=== PATIENT | female | born 1975 | race Caucasian/White ===

== ENCOUNTER 2022-11-26 14:31 | Emergency (ER) | payer BC, SELFPAY ==
[2022-11-26 14:52] VITALS: BP 89/59; PULSE 65; RESP 18; TEMP 36; O2SAT 94; BMI 34.7
--- NOTE | 2022-11-26 15:24 | ED.WOUNDLAC ---
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 She was placing it up on a shelf in it fell and cut into her right wrist. She has a 6 cm linear laceration over the volar aspect of her wrist. She has full function of her tendons and nerves. Her tetanus status is up-to-date. Related Data Home Medications Medication Instructions Recorded Confirmed adalimumab 40 mg/0.4 mL 40 mg subcut Q2W 11/26/22 11/26/22 subcutaneous pen kit (Humira(CF) Pen) bupropion HCl 150 mg 24 hr tablet, 150 mg PO DAILY 11/26/22 11/26/22 extended release cholecalciferol (vitamin D3) 125 125 mcg PO DAILY 11/26/22 11/26/22 mcg (5,000 unit) tablet (Vitamin D3) Allergies Allergy/AdvReac Type Severity Reaction Status Date / Time No Known Drug Allergies Allergy Verified 11/26/22 14:51 Review of Systems Status of ROS: Reports: 10 or more systems reviewed and unremarkable except as noted in History and below Narrative: Constitutional: No fevers, no weight gain or loss. Eyes: No discharge. No vision changes. HENT: No congestion, no sore throat, no ear pain. Cardiovascular: No chest pain, no palpitations. Respiratory: No shortness of breath, no wheezes, no cough. Gastrointestinal: No abdominal pain, no vomiting, no diarrhea. Genitourinary: No dysuria, no hematuria. Musculoskeletal: Normal range of motion. Skin: No rashes, no pruritis. Neurological: No dizziness, weakness, sensory change, speech change. Endo/Heme/Allergies: No bruising or bleeding. No polydipsia. Pysch: no suicidality, no anxiety, no insomnia. All other systems reviewed and are negative. Exam Narrative: Exam Narrative: Constitutional: Well-developed, well-nourished, no acute distress. HEENT: Normocephalic, atraumatic. Neck: Normal range of motion. Nontender. Supple. Heart: Regular. No murmurs. Normal rate. Intact distal pulses. Lungs: Clear to auscultation. No chest discomfort. No wheezes, rhonchi, or rales. Abdomen: Normal bowel sounds. Nontender. No rebound tenderness. Genitalia: Deferred. Back: No midline tenderness. Normal range of motion. Extremities: Normal range of motion. 6 cm linear laceration across the volar aspect of the right wrist. Skin: Intact. No rash. Warm. No erythema or pallor. Neurologic: No altered sensation. No weakness. Alert and oriented. Psychiatric: No suicidality. No anxiety or depression. No insomnia. Nursing notes and vitals signs are reviewed. Const: Vital Signs, click to edit/add: Vital Signs - 24 hr 11/26/22 14:52 Temperature 96.8 F L Pulse Rate [Pulse Oximeter] 65 Respiratory Rate 18 Blood Pressure [Le ft Upper Arm] 89/59 L Pulse Oximetry 94 Oxygen Delivery Me thod Room Air Course Vital Signs Vital signs: Initial Vital Signs Temperature 96.8 F L 11/26/22 14:52 Temperature Source Temporal Artery Scan 11/26/22 14:52 Pulse Rate 65 11/26/22 14:52 Respiratory Rate 18 11/26/22 14:52 Blood Pressure 89/59 L 11/26/22 14:52 Blood Pressure Mean 69 L 11/26/22 14:52 Pulse Oximetry 94 11/26/22 14:52 Oxygen Delivery Method Room Air 11/26/22 14:52 Vital Signs Temperature 96.8 F L 11/26/22 14:52 Pulse Rate 65 11/26/22 14:52 Respiratory Rate 18 11/26/22 14:52 Blood Pressure 89/59 L 11/26/22 14:52 Pulse Oximetry 94 11/26/22 14:52 Oxygen Delivery Method Room Air 11/26/22 14:52 Temperature 96.8 F L 11/26/22 14:52 Pulse Rate 65 11/26/22 14:52 Respiratory Rate 18 11/26/22 14:52 Blood Pressure 89/59 L 11/26/22 14:52 Pulse Oximetry 94 11/26/22 14:52 Oxygen Delivery Method Room Air 11/26/22 14:52 MDM - Wound/Laceration MDM Narrative Medical decision making narrative: This patient has a wrist laceration that would benefit from suture repair. After anesthesia with 1% lidocaine with epinephrine the wound was cleansed and explored to its base. 8 sutures were placed in interrupted fashion using 4.0 Ethilon suture. The wound was bandaged and instructions were given regarding wound care and the need to return in 7-10 days for suture removal. Discharge Plan Discharge Clinical Impression: Laceration Patient Disposition: Home, Self-Care Condition: Improved Additional Instructions: Keep wound clean and dry. Return to clinic or urgent care in 7-10 days for suture removal. Follow up with MD otherwise as needed. Prescriptions: No Action bupropion HCl 150 mg tablet extended release 24 hr 150 mg PO DAILY cholecalciferol (vitamin D3) [Vitamin D3] 125 mcg (5,000 unit) tablet 125 mcg PO DAILY Humira(CF) Pen 40 mg/0.4 mL pen injector kit 40 mg subcut Q2W Stand Alone Forms: [facility] Info Instructions
== END 2022-11-26 15:36 | disposition home or self-care (01) ==
LOC: ED 15:33
PROVIDERS: Emergency Provider Emergency Medicine Emergency Medical Services; PCP Physician Assistant Medical
DX: S61.511A Laceration without foreign body of right wrist, initial encounter (principal); W26.8XXA Contact with other sharp object(s), not elsewhere classified, initial encounter
CPT/HCPCS: 12002; 99283; 99284

== ENCOUNTER 2023-12-01 11:14 | Emergency (ER) | payer BC, SELFPAY ==
[2023-12-01 11:18] VITALS: BP 137/84; PULSE 75; RESP 18; TEMP 36.9; O2SAT 98; BMI 32.8
--- NOTE | 2023-12-01 11:48 | CRLHL7_ITS ---
For Patients: As a result of the Cures Act, medical imaging exams and procedure reports are released immediately into your electronic medical record. You may view this report before your referring provider. If you have questions, please contact your health care provider. INDICATION: Lower abdominal pain. Cramping. Prior tubal ligation and cholecystectomy. TECHNIQUE: CT abdomen and pelvis acquired with 78 cc of Isovue 370 IV contrast. COMPARISON: None. FINDINGS: Lower chest: Unremarkable. Liver: Unremarkable. Spleen: Unremarkable. Pancreas: Unremarkable. Gallbladder and bile ducts: Cholecystectomy. No biliary ductal dilatation. Kidneys: Unremarkable. Adrenal glands: Unremarkable. GI tract: Distal colonic diverticulosis without evidence of acute diverticulitis. No evidence of obstruction or appendicitis. No free intraperitoneal gas. Trace pelvic free fluid. Lymph nodes: No pathologic lymphadenopathy. Vascular structures: Unremarkable. Pelvic Organs: Small low densities in the bilateral adnexal regions likely represent dominant follicles or small cysts. Uterus and bladder as imaged are unremarkable. Bones: No acute or suspicious osseous abnormality. IMPRESSION: 1. No acute intra-abdominal or pelvic abnormality. 2. Mild sigmoid diverticulosis without evidence of acute diverticulitis. 3. Trace pelvic free fluid is likely physiologic. Low densities in the adnexal regions likely represent small cysts or dominant follicles. Dictated by Amari Beltrán MD @ 12/01/2023 1:23:01 PM Please note that all CT scans at this facility use dose modulation, iterative reconstruction, and/or weight-based dosing when appropriate to reduce radiation dose to as low as reasonably achievable. Dictated by: Amari Beltrán MD @ 12/01/2023 13:23:18 (Electronically Signed)
[2023-12-01 11:58] LABS: Appearance Urine Cloudy (Clear); Bilirubin Urine Negative (Negative); Blood Urine Trace-intact (Negative); Color Urine Yellow (Yellow); Glucose Urine Negative (Negative); Ketones Urine Negative (Negative); Leukocyte Esterase Urine Negative (Negative); Nitrite Urine Negative (Negative); Protein Urine Negative (Negative); Specific Gravity Urine >= 1.030 (1.000-1.030); Ur HCG Qualitative* Negative (Negative); Urobilinogen Urine 0.2 (0.2-1.0); pH Urine 5.5 (5.0-8.5)
[2023-12-01 12:06] LABS: Amorphous Sediment Urine Many; RBC Urine 0-2 (0-2); Squamous Epithelial Cell Urine Moderate (None-Few); WBC Urine 0-2 (0-5)
--- NOTE | 2023-12-01 12:09 | ED_ITS ---
HPI - General Adult General Date Seen: 12/01/23 Chief complaint: Abdominal Pain Stated complaint: Lower abdominal pain Time Seen by Provider: 12/01/23 11:41 Source: patient, RN notes reviewed and old records reviewed Mode of arrival: ambulatory Limitations: no limitations History of Present Illness HPI narrative: Patient is a 48-year-old woman who presents for evaluation of some lower abdo durga pain which she has been having periodically it sounds like for a few months although it has been worse this week. She notes she had a bad episode of lower abdominal cramping with referral to the labia and buttocks on Tuesday which lasted several hours. It resolved with ibuprofen and heating pad. She had recurrence of symptoms although less severe today while out for a walk. She has not taken any medications today, pain is improved at this time. She does have a prior history of uterine fibroids, she has an appointment on the of this month to discuss hysterectomy. She showed me her calender in her phone where she jaw at sound when she has symptoms she has scattered episodes of this lower abdominal cramping but says it was worse on Tuesday than it has ever been. She does have episodic bleeding but denies any today. She has not had urinary symptoms, nausea, vomiting, diarrhea, constipation, hematuria or other complaints. She was worried today that it might be something different like appendicitis. She has had a tubal ligation, denies other abdominal surgeries. She has a possible diagnosis of ankylosing spondylosis, for which she is on Humira. 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 Related Data Home Medications ?Medication ?Instructions ?Recorded ?Confirmed adalimumab 40 mg/0.4 mL 40 mg subcut Q2W 11/26/22 12/01/23 subcutaneous pen kit (Humira(CF) Pen) cholecalciferol (vitamin D3) 125 125 mcg PO DAILY 11/26/22 12/01/23 mcg (5,000 unit) tablet (Vitamin D3) albuterol sulfate 90 mcg/actuation 1 - 2 puff inhalation Q6H PRN 12/01/23 12/01/23 aerosol inhaler dyspnea Allergies Allergy/AdvReac Type Severity Reaction Status Date / Time No Known Drug Allergies Allergy Verified 12/01/23 11:27 Review of Systems Status of ROS: Reports: 10 or more systems reviewed and unremarkable except as noted in History and below PFSH PFS Social History Smoking Status: Unknown if ever smoked Exam Narrative: Exam Narrative: Vital signs as noted above. In general, an alert, well-appearing patient. Head: Normocephalic, atraumatic. Eyes: Pupils are equal reactive. Extraocular movements are full. Conjunctivae are normal. ENT: Mucous membranes are moist. Throat is normal. Neck: Supple without lymphadenopathy. Heart: Regular rate and rhythm. No murmur or rub. Lungs: Clear bilaterally. No increased work of breathing, crackles or wheezes. Abdomen: Soft and nondistended. She has some mild suprapubic tenderness without rebound guarding or rigidity. Extremities: Well perfused. No edema. No calf tenderness. Pulses intact. Neurologic: Patient is alert and oriented to person and place. Speech is fluent. Face is symmetric. Moves all extremities equally. Affect: Normal. Skin: Warm and dry. Well perfused. Const: Vital Signs, click to edit/add: Vital Signs - 24 hr 12/01/23 11:18 12/01/23 13:18 Temperature 98.4 F Pulse Rate [Pulse Oximeter] 75 70 Respiratory Rate 18 18 Blood Pressure [Ri ght Upper Arm] 137/84 139/75 Pulse Oximetry 98 96 Oxygen Delivery Me thod Room Air Room Air Documenting provider has reviewed patient's vital signs: yes Course Course ED Course: Patient presents with episodic lower abdominal cramping. Overall my suspicion is high is that this is related to uterine cramping, but will evaluate for possible other etiologies such as appendicitis, diverticulitis, ovarian pathology, UTI, kidney stone. At this time, she is feeling relatively comfortable, abdominal exam is benign. Patient had some fluids and Toradol, is feeling improved. Evaluation is unremarkable, labs including CBC, metabolic panel, UA and UPT are unremarkable. CRP is minimally elevated at 1.4. Abdominal exam remains benign and CT scan of the abdomen by my review did not show any evidence of appendicitis, diverticulitis or obstruction. Final radiology read as follows:FINDINGS: Lower chest: Unremarkable. Liver: Unremarkable. Spleen: Unremarkable. Pancreas: Unremarkable. Gallbladder and bile ducts: Cholecystectomy. No biliary ductal dilatation. Kidneys: Unremarkable. Adrenal glands: Unremarkable. GI tract: Distal colonic diverticulosis without evidence of acute diverticulitis. No evidence of obstruction or appendicitis. No free intraperitoneal gas. Trace pelvic free fluid. Lymph nodes: No pathologic lymphadenopathy. Vascular structures: Unremarkable. Pelvic Organs: Small low densities in the bilateral adnexal regions likely represent dominant follicles or small cysts. Uterus and bladder as imaged are unremarkable. Bones: No acute or suspicious osseous abnormality. IMPRESSION: 1. No acute intra-abdominal or pelvic abnormality. 2. Mild sigmoid diverticulosis without evidence of acute diverticulitis. 3. Trace pelvic free fluid is likely physiologic. Low densities in the adnexal regions likely represent small cysts or dominant follicles. Reviewed all this with her. She does have that appointment scheduled on the and I would encourage that follow-up. Return at any time for acute worsening, new symptoms such as fever, vomiting, bloody stools etcetera. Continue with ibuprofen as needed. Vital Signs Vital signs: Initial Vital Signs Temperature 98.4 F 12/01/23 11:18 Temperature Source Temporal Artery Scan 12/01/23 11:18 Pulse Rate 75 12/01/23 11:18 Respiratory Rate 18 12/01/23 11:18 Blood Pressure 137/84 12/01/23 11:18 Blood Pressure Mean 101 12/01/23 11:18 Blood Pressure Position Sitting 12/01/23 11:18 Pulse Oximetry 98 12/01/23 11:18 Oxygen Delivery Method Room Air 12/01/23 11:18 Vital Signs Temperature 98.4 F 12/01/23 11:18 Pulse Rate 75 12/01/23 11:18 Respiratory Rate 18 12/01/23 11:18 Blood Pressure 137/84 12/01/23 11:18 Pulse Oximetry 98 12/01/23 11:18 Oxygen Delivery Method Room Air 12/01/23 11:18 Temperature 98.4 F 12/01/23 11:18 Pulse Rate 70 12/01/23 13:18 Respiratory Rate 18 12/01/23 13:18 Blood Pressure 139/75 12/01/23 13:18 Pulse Oximetry 96 12/01/23 13:18 Oxygen Delivery Method Room Air 12/01/23 13:18 Medications Administered Medications: Discontinued Medications Generic Name Dose Route Start Last Admin Trade Name Freq PRN Reason Stop Dose Admin Sodium Chloride 500 mls @ 500 mls/hr 12/01/23 11:48 12/01/23 13:09 0.9 % Sodium Chloride 500 Ml IV 12/01/23 12:47 500 mls/hr .Q1H ONE Administration Ketorolac Tromethamine 15 mg 12/01/23 11:48 12/01/23 13:10 Ketorolac 15 Mg/Ml Inj IVP 12/01/23 11:49 15 mg ONCE ONE Administration Medical Decision Making Lab Data Labs: Lab Results 12/01/23 12/01/23 Range/Units 11:50 12:27 WBC 10.73 (4.50-11.00) K/uL RBC 4.75 (4.00-5.20) m/uL Hgb 14.2 (12.0-16.0) gm/dL Hct 41.9 (33.0-51.0) % MCV 88 (80-100) fL MCH 30 (26-34) pg MCHC 34 (32-36) gm/dL RDW Coeff of Juanjose 12.9 (11.5-15.5) % Plt Count 277 (140-440) K/uL Neut % (Auto) 76.6 H (42.0-72.0) % Lymph % (Auto) 16.3 L (20-44) % Citrus % (Auto) 4.8 (0.0-11.0) % Eos % (Auto) 1.6 (0.0-7.0) % Baso % (Auto) 0.4 (0.0-3.0) % Neut # (Auto) 8.20 H (1.7-7.0) K/uL Lymph # (Auto) 1.70 (0.90-2.90) K/uL Citrus # (Auto) 0.50 (0.00-0.90) K/UL Eos # (Auto) 0.17 (0.00-0.50) K/uL Baso # (Auto) 0.04 (0.00-0.30) K/uL Abs Immat Gran (auto) 0.03 (0.00-0.30) K/uL Imm/Tot Granulo (auto) 0.3 % Sodium 137 (135-149) mmol/L Potassium 3.9 (3.6-5.1) mmol/L Chloride 105 (96-114) mmol/L Carbon Dioxide 27 (20-32) mmol/L Anion Gap 5 L (7-15) mEq/L BUN 15 (5-24) mg/dL Creatinine 0.7 (0.5-1.5) mg/dL Estimated Creat Clear 91.01 Estimated GFR 106 ml/min Glucose 95 (60-115) mg/dL Calcium 9.4 (8.4-10.6) mg/dL C-Reactive Protein 1.4 H (0.5-1.0) mg/dL Urine Color Yellow (Yellow) Urine Appearance Cloudy A (Clear) Urine pH 5.5 (5.0-8.5) Ur Specific [place] >= 1.030 (1.000-1.030) Urine Protein Negative (Negative) Urine Glucose (UA) Negative (Negative) Urine Ketones Negative (Negative) Urine Blood Trace-intact A (Negative) Urine Nitrite Negative (Negative) Urine Bilirubin Negative (Negative) Urine Urobilinogen 0.2 (0.2-1.0) Ur Leukocyte Esterase Negative (Negative) Urine RBC 0-2 (0-2) Urine WBC 0-2 (0-5) Ur Squamous Epith Cells Moderate A (None-Few) Amorphous Sediment Many A (None) Urine Bacteria None (None) Urine HCG, Qual Negative (Negative) Discharge Plan Discharge Clinical Impression: Abdominal pain Patient Disposition: Home, Self-Care Condition: Improved Instructions: Abdominal Pain (ED) Additional Instructions: Your evaluation today is reassuring, your CT scan shows diverticulosis but no evidence of inflammation/diverticulitis, and there is no evidence of appendicitis. Your labs are normal as well. I do think follow-up with your primary doctor and subsequently with gynecology would be reasonable. You can continue to use ibuprofen as needed. If you have severe uncontrolled pain that does not resolve with your usual measures, develop new symptoms such as fevers, vomiting, bloody stools etcetera, return at any time to the emergency department. Prescriptions: No Action cholecalciferol (vitamin D3) [Vitamin D3] 125 mcg (5,000 unit) tablet 125 mcg PO DAILY Humira(CF) Pen 40 mg/0.4 mL pen injector kit 40 mg subcut Q2W albuterol sulfate 90 mcg/actuation HFA aerosol inhaler 1 - 2 puff INHALATION Q6H PRN (Reason: dyspnea) Follow Up/Referrals: Elma Delong PA-C [Primary Care Provider] - Stand Alone Forms: [employer] Info Instructions
[2023-12-01 12:37] LABS: Basophils Absolute Auto 0.04 K/uL (0.00-0.30); Basophils Percent Auto 0.4 % (0.0-3.0); Eosinophils Absolute Auto 0.17 K/uL (0.00-0.50); Eosinophils Percent Auto 1.6 % (0.0-7.0); Hematocrit 41.9 % (33.0-51.0); Hemoglobin* 14.2 gm/dL (12.0-16.0); Immature Granulocytes Abs Auto 0.03 K/uL (0.00-0.30); Immature Granulocytes Pct Auto 0.3 %; Lymphocytes Percent Auto 16.3 % (20-44); Mean Corpuscular HGB Conc 34 gm/dL (32-36); Mean Corpuscular Hemoglobin 30 pg (26-34); Mean Corpuscular Volume 88 fL (80-100); Monocytes Percent Auto 4.8 % (0.0-11.0); Neutrophils Percent Auto 76.6 % (42.0-72.0); Platelet Count* 277 K/uL (140-440); RDW Coefficient of Variation % 12.9 % (11.5-15.5); Red Blood Count 4.75 m/uL (4.00-5.20); White Blood Count* 10.73 K/uL (4.50-11.00)
[2023-12-01 12:50] LABS: Slide Review Reflex No
[2023-12-01 12:52] LABS: Chloride* 105 mmol/L (96-114); Sodium* 137 mmol/L (135-149)
[2023-12-01 12:53] LABS: Potassium* 3.9 mmol/L (3.6-5.1)
[2023-12-01 12:55] LABS: Creatinine* 0.7 mg/dL (0.5-1.5); Est. Creatinine Clearance* 91.01; Estimated Glomerular Filt Rate 106 ml/min
[2023-12-01 12:56] LABS: Anion Gap 5 mEq/L (7-15); Blood Urea Nitrogen* 15 mg/dL (5-24); Calcium* 9.4 mg/dL (8.4-10.6); Carbon Dioxide* 27 mmol/L (20-32); Glucose* 95 mg/dL (60-115)
[2023-12-01 12:59] LABS: C Reactive Protein* 1.4 mg/dL (0.5-1.0)
[2023-12-01] MEDS: 0.9 % SODIUM CHLORIDE 500 ML 500 ML IV (13:09)
[2023-12-01] MEDS: KETOROLAC 15 MG/ML inj IVP (13:10)
[2023-12-01 13:18] VITALS: BP 139/75; PULSE 70; RESP 18; O2SAT 96
== END 2023-12-01 13:56 | disposition home or self-care (01) ==
PROVIDERS: Emergency Provider Emergency Medicine; PCP Physician Assistant Medical
DX: R10.9 Unspecified abdominal pain (principal)
CPT/HCPCS: 36415; 74177; 80048; 81001; 81025; 85025; 86140; 96374; 99284; 99285; J1885; J7030; Q9967

== ENCOUNTER 2024-02-02 10:16 | Outpatient (CLI) | payer BC, SELFPAY ==
[2024-02-04 05:39] LABS: HPV Source Cervical; HPV, High Risk by TMA Not Detected
[2024-02-14 14:02] LABS: Pap Test Reviewed by Path Done
== END 2024-02-02 10:17 | disposition home or self-care (01) ==
PROVIDERS: PCP Physician Assistant Medical; Visit Provider Obstetrics & Gynecology
DX: N92.1 Excessive and frequent menstruation with irregular cycle (principal); N94.6 Dysmenorrhea, unspecified; Z12.4 Encounter for screening for malignant neoplasm of cervix
CPT/HCPCS: 87624; 87625; 88141; 88142

== ENCOUNTER 2024-03-29 09:14 | Day surgery (SDC) | payer BC, SELFPAY ==
[2024-03-29] VITALS (20 sets, daily range): BP systolic 116–148; BP diastolic 59–85; PULSE 55–90; RESP 16–20; TEMP 36.3–37.2; O2SAT 91–98; BMI 34.0
[2024-03-29] MEDS: 0.9 % SODIUM CHLORIDE 500 ML 500 ML 100 ML IV ×2 (10:00→14:26)
[2024-03-29] MEDS: SODIUM CHLORIDE 0.9 % (FLUSH) 10 ML SYRINGE IVF (10:00)
[2024-03-29 10:14] LABS: Ur HCG Qualitative* Negative (Negative)
[2024-03-29 10:25] LABS: Basophils Absolute Auto 0.02 K/uL (0.00-0.30); Basophils Percent Auto 0.2 % (0.0-3.0); Eosinophils Absolute Auto 0.18 K/uL (0.00-0.50); Eosinophils Percent Auto 2.2 % (0.0-7.0); Hematocrit 41.2 % (33.0-51.0); Immature Granulocytes Abs Auto 0.04 K/uL (0.00-0.30); Immature Granulocytes Pct Auto 0.5 %; Lymphocytes Absolute Auto 1.84 K/uL (0.90-2.90); Lymphocytes Percent Auto 22.2 % (20-44); Mean Corpuscular HGB Conc 34 gm/dL (32-36); Mean Corpuscular Hemoglobin 30 pg (26-34); Mean Corpuscular Volume 88 fL (80-100); Monocytes Percent Auto 4.9 % (0.0-11.0); Platelet Count* 256 K/uL (140-440); RDW Coefficient of Variation % 12.7 % (11.5-15.5); Red Blood Count 4.69 m/uL (4.00-5.20); White Blood Count* 8.29 K/uL (4.50-11.00)
[2024-03-29 10:34] LABS: Slide Review Reflex No
[2024-03-29 10:35] LABS: Creatinine* 0.6 mg/dL (0.5-1.5); Est. Creatinine Clearance* 105.01; Estimated Glomerular Filt Rate 109 ml/min
--- NOTE | 2024-03-29 10:39 | W.ANESCHARGE ---
Anesthesia Charges Start Date/Time Anesthesia Start Date: 03/29/24 Anesthesia Start Time: 11:18 Stop Date/Time Anesthesia Stop Date: 03/29/24 Anesthesia Stop Time: 14:15
--- NOTE | 2024-03-29 10:40 | P.NB_ITS ---
Nerve Block Nerve Block Time Seen by Provider: 11:20 Date Seen: 03/29/24 Type of block requested by surgeon for post-operative analgesia: TAP Side: bilateral Time out performed: Yes Verification of patient name: Yes Verification of date of : Yes Site marking: site marked Name of person performing procedure: Brodie Continuous monitoring Was continuous monitoring of O2 sat, B/P, telemetry monitor, recorded every 15 minutes?: Yes Procedure Checklist: sterile prep, needles and gloves Ultrasound guided. Images saved: Yes Medications given in 5ml increments after negative aspiration: Marcaine %: 0.25 mL: 30 Needle gauge: 20 and Exparel mL: 10 Patient tolerated procedure well: Yes Additional comments: Needle noted between internal oblique and transversus abdominus. Local spread visualized Block Charges Block Charge (with Pro Fee): TAP Bilateral Use of Ultrasound Machine for Block: Yes- US Guidance/pain block
[2024-03-29] MEDS: CEFAZOLIN 2 GM INJ IVP (11:30)
[2024-03-29] MEDS: LIDOCAINE 1%-EPI 1:100,000 20 ML INFILTRATI (13:40)
--- NOTE | 2024-03-29 14:01 | SUR.OPER ---
IRRITATION AT CAUTERY PAD SITE
--- NOTE | 2024-03-29 14:06 | W.PM.H&PU ---
History & Physical Update History & Physical Update H&P Reviewed and patient assessed: No changes noted H&P Updates: Smoking cessation for 4 weeks.
--- NOTE | 2024-03-29 14:07 | PM.GYNPRHY ---
Procedure Type of Hysterectomy: Total Laparoscopic Pre-op/Post-op diagnoses: Pre-Op/Post-Op Diagnoses Operation Date: 03/29/24 11:00 <No data on this case meets the specified criteria> Procedure: Procedures Operation Date: 03/29/24 11:00 Actual Procedure Side Surgeon p Laparoscopic Total Hysterectomy, Bilateral Salpingectomy, RIGHT OOPHORECTOMY, lysis of adhesion, fulguration of endometriosis implants, Cystoscopy Sasha Hawkins MD Linter Saw Sharpener: Marti Villavicencio Estimated blood loss (mL): 50 Anesthesia Type: General Complications: none Fluids: crystalloid Fluid amount (mL): 1,000 Urine output (mL): 600 Weight of Uterus: 5.538 oz Specimen: uterus, left tube and right tube & ovary Narrative: Findings: On exam under anesthesia: Normal appearing external genitalia. Normal appearing cervix. The uterus was anteverted, approximately 10 week size, mobile. No masses palpable. Adnexa without mass or fullness palpable. On laparoscopy: globally enlarged uterus, remnant of the left fallopian tube was adhered to the anterior abdominal wall. Both fallopian tubes were noted to be transected from previous tubal ligation. However, remnant fallopian tubes and fimbria appeared generally normal bilaterally. Both ovaries had one clear ovarian cyst. Right ovarian cyst was noted to be larger. Filmy adhesion of epiploica to right abdominal sidewalls. Endometriosis implant noted in the posterior cul-de-sac in between the uterosacral ligaments and on the posterior surface of the uterus. Atherosclerosis of the uterine vessels. Normal appearing liver. Cystoscopy: The dome of the bladder was noted to be without defect and no evidence of any sutures from the vaginal cuff causing injury. Normal urine flow was noted through both ureteral orifices. Preoperative diagnosis: Yanira is a 49-year-old 3 para 3003 with abnormal uterine bleeding and dysmenorrhea 2/2 to endometriosis. Postoperative diagnosis: Same Procedure: Yanira was taken to the operating room where general anesthetic was found to be adequate. She was placed in the dorsal lithotomy position and an exam under anesthesia was performed with findings stated above. She was then prepped and draped in a normal sterile manner. A Allen catheter was placed. A bivalve speculum was placed in the vaginal canal. A long tenaculum clamp was placed on the anterior lip of the cervix, in the uterus sounded to 10 cm. A medium size VCare uterine manipulator was then placed. The tenaculum clamp and speculum were removed from the cervix. Attention was then turned to performing the laparoscopic portion of the procedure. All incisions were infiltrated with 1% lidocaine with epinephrine prior to incising the skin. A vertical, infraumbilical 5 mm incision was made. A 5 mm trocar was then placed under direct visualization. The abdomen was then insufflated with CO2 gas to a pressure of 15 mm of mercury. Two pelvic ports were then placed approximately 3-4 finger breaths medial to the ischial crests. The trocar in the RLQ = 5mm, LLq = 11mm. A 4th port was made in the patient's right lower quadrant, just superior medial to the left ASIS. A 5 mm Fios Kii port was inserted under direct visualization and without complication. The balloon on each of the 4 ports was inflated, holding each in place. These were placed under direct visualization. Attention was then turned to performing the hysterectomy. Lysis of adhesions was performed to free the left fallopian fimbria from the anterior abdominal sidewall. Once freed, the left fallopian tube was grasped, dissected off of the left ovary and removed with sequential pedicles using the dissecting, ligasure [place] tip dissecting forceps. Fallopian tube was removed in 2 pieces due to previous transection from tubal ligation. The left side of the hysterectomy was performed using the ligasure dissecting forceps. The 1st pedicle was formed starting with the broad ligament that was cauterized and and bisected. Sequential pedicles were formed to divide the utero-ovarian ligament. Then sequential pedicles were made through the broad ligament. The posterior leaf of the broad ligament was then divided and sequential pedicles carried down to the level of the VCare cup. The anterior leaf of the broad ligament was then divided down to the level of the anterior aspect of the VCare cup and a bladder flap created. The uterine vessels were then skeletonized. The uterine vessels were then cauterized and divided. Then excess tissue was cleared over the top of the VCare cup using the dissecting forceps. The right salpingo oophorectomy was performed by ligating the IP in sequential pedicles towards the round ligament. Right side of the hysterectomy were then performed in a similar manner. The Ligasure [employer] pen with the spatula attachment was then used to perform the colpotomy incising around the VCare cup. The uterus was removed and the fundus placed in the vaginal canal to maintain insufflation. The vaginal cuff was then reapproximated using 2-0 V lock suture in a running manner. All the pedicles and vaginal cuff were then closely visualized and hemostasis obtained with the Valleylab pen spatula. Valleylab pen spatula was also used to fulgurate two endometriosis lesions between the uterosacral ligament in the [id number]-sac. Excellent hemostasis noted. The uterus and right fallopian tube and ovary was removed from the vaginal canal and sent to pathology. The Allen catheter was briefly removed. A diagnostic cystoscopy was performed using normal saline as the insufflation medium. Findings noted from above. Fluorescein IV was given intraoperatively to visualize the urine more easily. Allen catheter was then replaced to be retained until removal on POD#1. Attention was then returned to the abdomen where hemostasis was verified. The CO2 pressure decreased to 5mmHG and hemostasis verified. The fascia in the LLQ incision was approximated with 0-Vicryl suture using the Gregorio Thomasmukund fascial closure device. This was closed under direct visualization with the laparoscope. All trocars were removed under direct visualization. CO2 gas was allowed to escape the infraumbilical port prior to its removal. All skin incisions were re-approximated using 4-0 Monocryl in a running subcuticular manner, Exophin skin adhesive gel and adhesive bandages placed. The patient tolerated this procedure well. Sponge, lap and instrument counts were correct x2 at the end of the procedure and the patient was taken to the recovery area in stable condition. The patient received 2gm IV ancef prior to the start of the procedure.
--- NOTE | 2024-03-29 14:17 | W.ANESCHARGE ---
Anesthesia Charges Start Date/Time Anesthesia Start Date: 03/29/24 Anesthesia Start Time: 11:18 Stop Date/Time Anesthesia Stop Date: 03/29/24 Anesthesia Stop Time: 14:15
--- NOTE | 2024-03-29 14:22 | SUR.PHASEI ---
Patient arrived to PACU, awake and following commands, denies pain or nausea.
--- NOTE | 2024-03-29 14:39 | SUR.PHASEI ---
Patient remains comfortable, refusing ice chips at this time. Patient meets anesthesia discharge criteria from PACU
[2024-03-29] MEDS: OXYCODONE 5 MG TABLET PO ×2 (15:28→21:24)
[2024-03-29] MEDS: ACETAMINOPHEN 500 MG TABLET 1000 MG PO ×2 (15:28→21:24)
[2024-03-29] MEDS: HYDROmorphone 0.5 mg/0.5 ml inj IVP (16:20)
--- NOTE | 2024-03-29 18:16 | PC.NURSE ---
End of shift: Pt arrived to the unit @ 1455, accompanied by spouse. Pts VS have remained stable, LSCTA. Incentive spirometer education given. Pain is being managed with PRN medication, reposition, and activity. Pt stated 2-8/10 pain to the abdomen, vaginal pressure, and chronic back pain. Minimal bleeding present on Pts pad. Pt requested kessler to be removed due to feeling uncomfortable. Attempted to void in the toilet, unsuccessful. Awaiting to pass gas. Pt walking in the hallways. Pt up in chair. Pt tolerating reg diet/fluids well. SL. Lap sites CDI. Spouse at bedside, call light within reach.
[2024-03-29] MEDS: SIMETHICONE 80 MG TAB.CHEW 160 MG PO (18:55)
[2024-03-29] MEDS: GABAPENTIN 100 MG CAPSULE PO (21:24)
[2024-03-30] MEDS: ACETAMINOPHEN 500 MG TABLET 1000 MG PO (04:52)
[2024-03-30] MEDS: OXYCODONE 5 MG TABLET PO ×2 (04:52→09:16)
[2024-03-30 04:54] VITALS: BP 138/82; PULSE 78; RESP 18; TEMP 37; O2SAT 95
--- NOTE | 2024-03-30 06:53 | PC.NURSE ---
Pt alert, oriented and vitally stable. Pain rated 6-7/10 throughout shift, prn oxy and tylenol given. Pt up via SBA. Aqua K to back, pt refused ice. Pt alert, oriented and vitally stable.?
[2024-03-30 07:08] LABS: Hemoglobin* 12.1 gm/dL (12.0-16.0)
[2024-03-30 07:23] LABS: Creatinine* 0.7 mg/dL (0.5-1.5); Est. Creatinine Clearance* 90.01; Estimated Glomerular Filt Rate 105 ml/min
[2024-03-30 08:10] VITALS: BP 146/82; PULSE 78; RESP 18; TEMP 36.4; O2SAT 96
--- NOTE | 2024-03-30 09:07 | P.DS_ITS ---
DS: Providers Provider Date Seen: 03/30/24 Primary care physician: Elma Delong PA-C Attending Physician on discharge: Sasha Hawkins MD DOBBY LOOM CHAIN PEGGER-Discharge Summary Hospital Course Hospital Course Narrative: Patient is a 49 year old admitted on schedule laparoscopic total hysterectomy, bilateral salpingectomy, right oophorectomy for heavy menstrual bleeding and dysmenorrhea. Indication for surgery: Endometriosis. Intraoperative findings: On exam under anesthesia: Normal appearing external genitalia. Normal appearing cervix. The uterus was anteverted, approximately 10 week size, mobile. No masses palpable. Adnexa without mass or fullness palpable. On laparoscopy: globally enlarged uterus, remnant of the left fallopian tube was adhered to the anterior abdominal wall. Both fallopian tubes were noted to be transected from previous tubal ligation. However, remnant fallopian tubes and fimbria appeared generally normal bilaterally. Both ovaries had one clear ovarian cyst. Right ovarian cyst was noted to be larger. Filmy adhesion of epiploica to right abdominal sidewalls. Endometriosis implant noted in the posterior cul-de-sac in between the uterosacral ligaments and on the posterior surface of the uterus. Atherosclerosis of the uterine vessels. Normal appearing liver. Cystoscopy: The dome of the bladder was noted to be without defect and no evidence of any sutures from the vaginal cuff causing injury. Normal urine flow was noted through both ureteral orifices. She had an uncomplicated surgery. Postoperative course has been uneventful. Vitals have been stable. She has remained afebrile. Today, on postoperative day #1, she reports the pain is well controlled. Surprising her plantar fasciitis has significantly improved. She credits gabapentin and request to continue through postoperative course. She has been able to ambulate Without difficulty. She is tolerating regular diet. She is passing flatus. Kessler catheter has been removed, and she is voiding without difficulty. Time Spent with Patient Time attestation: Total time spent providing and/or coordinating discharge services: Time spent: Less than 30 minutes DOBBY LOOM CHAIN PEGGER - Exam Physical Exam: Vital signs: Temp Pulse Resp BP Pulse Ox O2 Del Method 97.5 F L 78 18 146/82 H 96 Room Air 03/30/24 08:10 03/30/24 08:10 03/30/24 08:10 03/30/24 08:10 03/30/24 08:10 03/30/24 08:10 Narrative: Physical exam: General: No acute distress Psych: Alert and oriented x4, full affect HEENT: Normocephalic, atraumatic Neck: No cervical adenopathy, no thyromegaly Heart: Regular rate and rhythm, no murmur rub or gallop Lungs: Clear to auscultation bilaterally Abdomen: Normoactive bowel sounds, soft, no tenderness, rebound, or guarding Incision: Appropriately tender to palpation. Clean, dry, and intact. No caleb thema, induration, or abnormal discharge/breakdown Skin: No lesions or rashes Lower extremities: Trace lower extremity edema bilaterally Pelvic exam: Scant vaginal bleeding DOBBY LOOM CHAIN PEGGER - DS: Data Data Completed and Pending Labs on day of discharge: Labs from last 24 hours 03/30/24 03/29/24 03/29/24 06:08 10:03 10:00 WBC 8.29 RBC 4.69 Hgb 12.1 14.0 Hct 41.2 MCV 88 MCH 30 MCHC 34 RDW Coeff of Juanjose 12.7 Plt Count 256 Neut % (Auto) 70.0 Lymph % (Auto) 22.2 Mcdowell % (Auto) 4.9 Eos % (Auto) 2.2 Baso % (Auto) 0.2 Neut # (Auto) 5.80 Lymph # (Auto) 1.84 Mcdowell # (Auto) 0.40 Eos # (Auto) 0.18 Baso # (Auto) 0.02 Abs Immat Gran (auto) 0.04 Imm/Tot Granulo (auto) 0.5 Creatinine 0.7 0.6 Estimated Creat Clear 90.01 105.01 Estimated GFR 105 109 Urine HCG, Qual Negative Blood Type A Positive Antibody Screen NEGATIVE Procedures Procedures: Procedures Operation Date: 03/29/24 11:00 Actual Procedure Side Surgeon p Laparoscopic Total Hysterectomy, Bilateral Salpingectomy, RIGHT OOPHORECTOMY, Cystoscopy Sasha Hawkins MD Complications: none Discharge Plan Discharge Disposition: Home w/ Parent or Adult Discharging Surgeon: Sasha Hawkins Follow-Up Appointment: 2 weeks and 8 weeks postop Prescriptions: New acetaminophen 500 mg Tablet 1,000 mg PO Q6H PRN30 Days Qty: 60 0RF docusate sodium 100 mg Capsule 100 mg PO BID PRN (Reason: Constipation) 30 Days Qty: 60 0RF gabapentin 100 mg Capsule 100 mg PO TID 30 Days Qty: 90 0RF oxycodone 5 mg Tablet 5 mg PO Q6H PRN (Reason: Moderate Pain) 14 Days Qty: 20 0RF Continued ferrous sulfate 325 mg (65 mg iron) tablet 325 mg PO QDAY loratadine [Claritin] 10 mg tablet 10 mg PO QDAY cholecalciferol (vitamin D3) [Vitamin D3] 125 mcg (5,000 unit) tablet 125 mcg PO DAILY albuterol sulfate 90 mcg/actuation HFA aerosol inhaler 1 - 2 puff INHALATION Q6H PRN (Reason: dyspnea) Held Humira(CF) Pen 40 mg/0.4 mL pen injector kit 40 mg subcut Q2W Hold Instructions: Resume on 04/13/24. Patient Instructions: Acetaminophen (By mouth), Laxative, Stool Softeners (By mouth), Gabapentin (By mouth), Oxycodone, Rapid Release (By mouth), Laparoscopic Hysterectomy (DC) Additional Instructions: LAPAROSCOPY POSTOPERATIVE INSTRUCTIONS ACTIVITY Walking is encouraged, even if it is just short distances. Try to walk up to 6 times during the day. You may climb stairs as tolerated, but not for exercise. If you have a lengthy trip home after surgery, for 5 minutes or so every hour. To not participate strenuous activities, such as aerobic exercise. No heavy lifting/pushing/pulling for 4-6 weeks. Do not lift anything more than about 15 lbs (such as laundry, groceries, children, pets), vacuum, push heavy doors or grocery carts, etc. Do not put anything in the vagina for 6-8 weeks after surgery unless otherwise instructed by your doctor (including tampons, douching, sexual intercourse, etc). No driving for about 2 weeks after surgery, while you are taking narcotic pain medication, or until you feel that you are ready. Practice checking your blind spot and stepping hard on the brake. Avoid sitting or lying in bed for more than 2 hours at a time while you are awake to reduce your risk of blood clots. You may return to work when directed by your physician. Please contact your doctor if you need any return to work letters or medical leave paperwork to be completed. WOUND CARE You will have 4 small incisions on your abdomen. There will be dissolvable stitches under your skin that do not need to be removed. Shower daily after surgery. Clean your incision with mild antibacterial soap and water. Pat your incision dry with a clean towel. No tub baths until wound is completely healed. Wash your hands frequently, especially before touching your incision, changing any dressings, after using the restroom, and before eating. Avoid wearing tight clothing over your incision. Readable, loose clothing is more comfortable. Do not use hot tub, whirlpool or go swimming unless otherwise instructed by your health care provider. PAIN MANAGEMENT Take your oral pain medication as needed. You should be taking Ibuprofen 600mg every 6 hours with 650 mg of Tylenol every 6 hours. You can take these together every six hours or alternate them every 3 hours. You should then take the oxycodone as needed if you have breakthrough pain on top of the Tylenol and Ibuprofen. Some pain medications can cause constipation so you should take a stool softener (i.e. colace/senna) while you are on these medications. You may also take milk of magnesia or Miralax for constipation. AP take narcotic medications for pain, do not: Gauger Delivery operate motorized vehicles/equipment, drink alcoholic beverages, make important decision or sign legal documents. WHAT TO EXPECT AT HOME Recovery from surgery is generally 2-4 weeks, but sometimes longer for more strenuous activity. It is normal to be very tired during this time. It is normal to have some drainage or a small amount of vaginal bleeding after surgery which may last up to 8 weeks. You may go home with a kessler catheter in your bladder. If so, you will need to follow up for a nurse visit in 7-10 days for removal. You will most likely experience gas pain, abdominal swelling, or shoulder pain for 24-72 hours after surgery. This is from the carbon dioxide gas put into your abdomen to better visualize your organs. A warm shower, heating pad, and/or walking may help. WHEN TO CALL YOUR DOCTOR : Fever (>100.4?F or 38.0?C) or chills. Incision problems such as redness, warmth, swelling, or foul-smelling drainage. Severe nausea or persistent vomiting. Bright red vaginal bleeding (soaking >1 pad/hour) or foul-smelling vaginal drainage. Severe pain not relieved with pain medication. Pain and swelling in your legs, especially if it is only on one side and not the other. Pain with urination, cloudy urine, or foul-smelling urine. Or if you have any other problems or questions. CALL 911 OR GO TO THE EMERGENCY ROOM IF YOU HAVE: Any shortness of breath, difficulty breathing, or chest pain. Follow-up: Elma Delong PA-C [Primary Care Provider] - Sasha Hakwins MD [Staff Physician] - 04/12/24 1:00 pm (First appointment is list for April 12, 2024 @1:00pm. Second appointment is May 29, 2024 @12:45pm. ) Discharge Orders: Discharge Order (Routine); Ordered 03/30/24 Ordered By: Sasha Hawkins
[2024-03-30] MEDS: LORATADINE 10 MG TABLET PO (09:10)
[2024-03-30] MEDS: GABAPENTIN 100 MG CAPSULE PO (09:10)
--- NOTE | 2024-03-30 11:10 | PC.NURSE ---
shift note: pt up indept in [facility]. active BS x4. pt tolerating regular diet. pt belching. pain rating 5/10 in abd. IV dc'd intact. Reviewed dc instructions and copies given. Belongings reviewed and sent with pt at dc.
== END 2024-03-30 10:00 | disposition home or self-care (01) ==
LOC: OR 09:16 → MEDSURG 09:21
PROVIDERS: PCP Physician Assistant Medical; Visit Provider Obstetrics & Gynecology
PROC: 0UT94ZZ Resection of Uterus, Percutaneous Endoscopic Approach (ICD-10-PCS; CPT 58571; principal; 2024-03-29 10:45)
DX: N94.6 Dysmenorrhea, unspecified (principal); N80.329 Endometriosis of the posterior cul-de-sac, unspecified depth; N93.8 Other specified abnormal uterine and vaginal bleeding; N92.1 Excessive and frequent menstruation with irregular cycle; D25.1 Intramural leiomyoma of uterus; N83.01 Follicular cyst of right ovary; N83.8 Other noninflammatory disorders of ovary, fallopian tube and broad ligament; G89.18 Other acute postprocedural pain
CPT/HCPCS: 58571; 58662; 00840; 36415; 64488; 76942; 81025; 82565; 85018; 85025; 86850; 86900; 86901; 88307; A4314; A9270; C9290; J0330; J0665; J0690; J1171; J1885; J2250; J2405; J2704; J2710; J3010; J7030

== ENCOUNTER 2024-04-30 10:30 | Outpatient (RCR) | payer BC, SELFPAY | END 2024-08-06 11:02 | disposition home or self-care (01) | PROVIDERS: PCP Physician Assistant Medical; Visit Provider Physician Assistant Medical | DX: M72.2 Plantar fascial fibromatosis (principal); Z51.89 Encounter for other specified aftercare | CPT/HCPCS: 97110; 97140; 97161 ==